=== PATIENT | male | born 2000 ===

== ENCOUNTER → 2019-12-31 15:25 | Outpatient (ROUT) | payer SELFPAY ==
[2020-01-01 14:22] LABS: COVID19 Sendout Not Detected (Not Detect)
== END ==
PROVIDERS: Visit Provider Family Medicine
DX: Z11.59 Encounter for screening for other viral diseases (principal)
CPT/HCPCS: 87635

== ENCOUNTER → 2020-10-13 14:26 | Outpatient (ROUT) | payer OTHER, SELFPAY ==
[2020-10-13 15:23] LABS: COVID19 -Nasal RAPID Negative (Negative)
== END ==
PROVIDERS: Visit Provider Family Medicine
DX: Z20.822 Contact with and (suspected) exposure to COVID-19 (principal)
CPT/HCPCS: 87635